=== PATIENT | male | born 1960 | race Caucasian/White ===

== ENCOUNTER 2019-07-29 10:27 | Emergency (ER) | payer MEDICAID ==
[~2019-07-29] VITALS: Wt 89.0 kg
[~2019-07-29 10:27] MED LIST: IBUP-1542 PO; NAPR-985 PO
[2019-07-29] MEDS ORDERED: KETOROLAC 15 MG INJ IM STA (13:26)
[2019-07-29 14:29] VITALS: BP 146/78; PULSE 76; RESP 18
== END 2019-07-29 14:30 | disposition home or self-care (01) ==
LOC: E/R 10:27
DX: M54.5 Low back pain (principal); R10.32 Left lower quadrant pain
CPT/HCPCS: 81003; 96372; J1885; Z7502